=== PATIENT | female | born 1990 | race Caucasian/White ===

== ENCOUNTER 2018-04-21 21:14 | Emergency (ER) | payer MEDICAID, OTHER ==
[2018-04-21] MEDS ORDERED: KETOROLAC TROMETHAMINE INJ/PF 30 MG/1 ML SDV IV ONE (23:01)
[2018-04-21] MEDS ORDERED: METOCLOPRAMIDE HCL INJ/PF 10 MG/2 ML SDV IV ONE (23:01)
[2018-04-21] MEDS ORDERED: NORMAL SALINE 1000 ML 1,000 ML IV ONE (23:01)
--- NOTE | 2018-04-21 23:09 | ER Document Report ---
ED Headache - General Chief Complaint: Headache Stated Complaint: HEADACHE Time Seen by Provider: 04/21/18 22:39 Primary Care Provider: THAIS ROJAS MD [ACTIVE STAFF] - Follow up as needed Notes: Patient is a 27-year-old female that comes to the emergency department for chief complaint of a headache. Headache is on the right side, wraps around the side of her head on the right, she also states that she is feeling some numbness along the right side of her face. Symptoms started about 6 PM, started out with a moderate headache and worsened. She states she is also had sickness for about 1 week with congestion, cough, she threw up once, she reports pressure in her face along her sinuses but denies sinus drainage. She denies head injury, fever. She does have a history of migraines and gets them infrequently. Never had imaging of her head. Has an IUD. TRAVEL OUTSIDE OF THE [place] IN LAST 30 DAYS: No - Related Data Allergies/Adverse Reactions: latex [Latex] Allergy (Unknown, Verified 04/21/18 23:41) Past Medical History - General Information source: Patient - Social History Smoking Status: Never Smoker Drug Abuse: None Lives with: Spouse/Significant other Family History: Reviewed & Not Pertinent - Medical History Medical History: Negative Surgical Hx: Negative - Immunizations Immunizations up to date: Yes Hx Diphtheria, Pertussis, Tetanus Vaccination: Yes Review of Systems - Review of Systems Constitutional: No symptoms reported EENT: No symptoms reported Cardiovascular: No symptoms reported Respiratory: No symptoms reported Gastrointestinal: No symptoms reported Genitourinary: No symptoms reported Female Genitourinary: No symptoms reported Musculoskeletal: See HPI Skin: No symptoms reported Hematologic/Lymphatic: No symptoms reported Neurological/Psychological: See HPI Physical Exam - Vital signs Vitals: Temp Pulse Resp BP Pulse Ox 97.6 F 77 18 115/60 100 04/21/18 21:19 04/21/18 21:19 04/21/18 21:19 04/21/18 21:19 04/21/18 21:19 - Notes Notes: GENERAL: Alert, interacts well. She appears mildly uncomfortable and squints frequently. HEAD: Normocephalic, atraumatic. EYES: Pupils equal, round, and reactive to light. Extraocular movements intact. ENT: Oral mucosa moist, tongue midline. Oropharynx unremarkable. Airway patent. Nares patent, no nasal septal hematoma, TM's intact. NECK: Full range of motion. Supple. Trachea midline. LUNGS: Clear to auscultation bilaterally, no wheezes, rales, or rhonchi. No respiratory distress. HEART: Regular rate and rhythm. No murmur ABDOMEN: Soft, non-tender. Non-distended. Bowel sounds present in all 4 quadran ts. GENITOURINARY: Deferred EXTREMITIES: Moves all 4 extremities spontaneously. No edema, normal radial and dorsalis pedis pulses bilaterally. No cyanosis. BACK: no cervical, thoracic, lumbar midline tenderness. Mild tenderness to the right paracervical musculature, range of motion of the neck intact. No saddle anesthesia, normal distal neurovascular exam. NEUROLOGICAL: Alert and oriented x3. Normal speech. [cranial nerves II through XII grossly intact]. PSYCH: Normal affect, normal mood. SKIN: Warm, dry, normal turgor. No rashes or lesions noted. Course - Re-evaluation Re-evalutation: Patient seems to have tingling paresthesias along the right side of her face but she has no facial muscle deficit. She has throbbing right-sided headache behind her right eye with nausea and photophobia. She also has some mild tenderness over the right paracervical musculature suggesting a tension component. Range of motion of the neck is unremarkable. No fever. Patient is not toxic in appearance. Headache was slowly progressive. However patient has never had imaging of her head before, because of the neurological deficit CAT scan of the head was performed. CAT scan performed within 6 hours of onset. CAT scan of the head unremarkable. As a result I do not suspect a subarachnoid hemorrhage, after treatment of headache on reevaluation patient is sleeping, much more comfortable, states headache has resolved. Numbness of the face resolved. As a result I do not suspect venous sinus thrombosis, patient's presentation does not suggest meningitis. Patient will be treated at home for suspected tension headache triggering migraine, provided medications, discussed use, expectations, follow-up, and return precautions in detail with patient and significant other at bedside. They state understanding and agreement. Stable at time of discharge. - Vital Signs Vital signs: Temp Pulse Resp BP Pulse Ox 97.9 F 96 12 108/84 99 04/22/18 01:24 04/22/18 01:24 04/22/18 01:24 04/22/18 01:24 04/22/18 01:24 Discharge - Discharge Clinical Impression: Headache Qualifiers: Headache type: unspecified Headache chronicity pattern: acute headache Intractability: not intractable Qualified Code(s): R51 - Headache Condition: Stable Disposition: HOME, SELF-CARE Additional Instructions: Your symptoms are most consistent with tension headaches triggering a migraine. For the muscle tightness in your neck I recommend the prescribed muscle relaxer, heat, [id number] anti-inflammatories. Massage can help. If you develop a headache you can take the Fioricet as prescribed. The CAT scan of your head is normal. Follow-up with primary care for additional evaluation and management of headaches. Return if you worsen including a severe headache, vomiting, fever, or any other concerning or worsening symptoms. Prescriptions: Butalb/Acetaminophen/Caffeine [Fioricet (50-325-40 mg) Tablet] 1 tab PO Q4HP PRN #30 tab PRN Reason: Methocarbamol [Robaxin 750 mg Tablet] 750 mg PO Q6 PRN #20 tablet PRN Reason: Forms: Return to Work Referrals: THAIS ROJAS MD [ACTIVE STAFF] - Follow up as needed
--- NOTE | 2018-04-21 23:31 | RADIOLOGY REPORT (SQ) ---
EXAM DESCRIPTION: CT HEAD WITHOUT IV CONTRAST COMPLETED DATE/TME: 04/21/2018 22:46 CLINICAL HISTORY: 27 years Female, headache, right sided facial numbness COMPARISON: None. TECHNIQUE: No contrast. Coronal and sagittal reformat. This exam was performed according to our departmental dose-optimization program, which includes automated exposure control, adjustment of the mA and/or kV according to patient size and/or use of iterative reconstruction technique. FINDINGS: No hemorrhage or infarct. No mass, mass effect, or midline shift. Brain and extra-axial structures appear intact. IMPRESSION: Normal CT of the head.
[2018-04-22 01:25] VITALS: BP 108/84
== END 2018-04-22 01:24 | disposition home or self-care (01) ==
LOC: ER 21:14
DX: R51 Headache (principal)
CPT/HCPCS: 99284; 96374; 96375; 70450; J1885; J2765; J7030